=== PATIENT | female | born 1995 | race Caucasian/White ===

== ENCOUNTER 2018-10-03 10:45 | Emergency (ER) | payer SELFPAY ==
[~2018-10-03] VITALS: Ht 152.4 cm; Wt 50.0 kg
[2018-10-03 12:50] VITALS: BP 159/62
[2018-10-03] MEDS ORDERED: KETOROLAC TROMETHAMINE 30 MG/ML VIAL IM ONE (13:15)
== END 2018-10-03 13:31 | disposition home or self-care (01) ==
LOC: EMS 10:45
DX: R10.32 Left lower quadrant pain (principal); J45.909 Unspecified asthma, uncomplicated; V49.40XA Driver injured in collision with unspecified motor vehicles in traffic accident, initial encounter; Y93.89 Activity, other specified; Y92.89 Other specified places as the place of occurrence of the external cause; Y99.8 Other external cause status
CPT/HCPCS: 74176; 81025; 96372; 99284; J1885